=== PATIENT | female | born 1965 | race Caucasian/White ===

== ENCOUNTER → 2017-12-09 | Outpatient (CLI) | payer OTHER | END | disposition home or self-care (01) | LOC: CFH 09:18 | PROVIDERS: ATTEND Family Medicine | DX: R05 Cough (principal) | CPT/HCPCS: 71046 ==

== ENCOUNTER → 2019-02-23 | Outpatient (CLI) | payer OTHER | END | disposition home or self-care (01) | LOC: CFH 12:38 | PROVIDERS: ATTEND Obstetrics & Gynecology | DX: N64.4 Mastodynia (principal); R92.2 Inconclusive mammogram | CPT/HCPCS: 77066; G0279 ==

== ENCOUNTER 2019-12-15 15:30 | Emergency (ER) | payer OTHER ==
[~2019-12-15] VITALS: Ht 149.9 cm; Wt 78.7 kg
[2019-12-15 15:37] VITALS: BP 131/77
[2019-12-15] MEDS ORDERED: SODIUM CHLORIDE 0.9% 1,000ML IVBOLUS ONE (16:00)
[2019-12-15] MEDS ORDERED: SODIUM CHLORIDE FLUSH 10ML SYR IVF ONE (16:00)
[2019-12-15 16:15] LABS: BASOPHILS % (AUTO) 1 % (0-1); EOSINOPHILS % (AUTO) 0 % (1-7); LYMPHOCYTES % (AUTO) 25 % (22-44); MEAN CORPUSCULAR HEMOGLOBIN 31.9 pg (27.0-34.8); MEAN CORPUSCULAR HGB CONC 33.7 g/dL (32.4-35.8); MEAN PLATELET VOLUME 8.1 fL (7.4-10.4); MONOCYTES % (AUTO) 11 % (2-9); NEUTROPHILS % (AUTO) 63 % (42-75); PLATELET COUNT 284 x10^3/uL (130-400); RED BLOOD COUNT 4.42 x10^6/uL (3.82-5.3); RED CELL DISTRIBUTION WIDTH 13.4 % (9.6-15.2)
[2019-12-15 16:16] LABS: MD NO
[2019-12-15 16:27] LABS: ALANINE AMINOTRANSFERASE 60 U/L (12-78); ALBUMIN 4.1 g/dL (3.4-5.0); ANION GAP 7 mmol/L (5-15); CALCIUM 8.6 mg/dL (8.5-10.1); CHLORIDE 106 mmol/L (98-107)
[2019-12-15 16:32] LABS: ALKALINE PHOSPHATASE 80 U/L (45-117); BILIRUBIN,TOTAL 0.2 mg/dL (0.2-1.0); TOTAL PROTEIN 7.9 g/dL (6.4-8.2); TROPONIN I < 0.015 ng/mL (0.000-0.045)
--- NOTE | 2019-12-15 19:05 | NUR ---
Jig And Fixture Repairer took over for patient and discharged. Patient was already dressed and ready to leave. Refused vitals at this time
== END 2019-12-15 19:08 | disposition home or self-care (01) ==
LOC: ED 18:07
DX: R05 Cough (principal); R06.00 Dyspnea, unspecified; R19.7 Diarrhea, unspecified; M79.10 Myalgia, unspecified site; R94.31 Abnormal electrocardiogram [ECG] [EKG]; R07.9 Chest pain, unspecified; I10 Essential (primary) hypertension
CPT/HCPCS: 36415; 71045; 80053; 84484; 85025; 93005; 99285

== ENCOUNTER 2019-12-20 15:40 | Emergency (ER) | payer OTHER ==
[~2019-12-20] VITALS: Ht 149.9 cm; Wt 77.5 kg
--- NOTE | 2019-12-20 15:48 | NUR ---
EKG DONE IN TRIAGE
[2019-12-20] MEDS ORDERED: DEXAMETHASONE 4 MG TABLET PO ONE (16:00)
[2019-12-20] MEDS ORDERED: DEXAMETHASONE 4 MG TABLET ONE (18:48)
--- NOTE | 2019-12-20 18:57 | NUR ---
PT REPORT TO [facility] URIAS. PT CARE TRANSFERRED. DECADRON GIVEN TO BRIDGETT FOR ADMINISTRATION.
[2019-12-20 19:30] VITALS: BP 146/78
--- NOTE | 2019-12-20 22:13 | NUR ---
POLE SHAVER HELPER: IT WAS BROUGHT TO THE POLE SHAVER HELPER'S ATTENTION AT THIS TIME THAT THIS PATIENT WAS NOT A HOLD AND UP FOR DC. ASSUMED CARE OF PT AT THIS TIME. DC PAPERWORK GONE OVER. PT AO X 4. SKIN SLIGHTLY DIAPHORETIC BUT COOL AND PINK. RESP EVEN AND UNLABORED. PT VERBLAIZES UNDERSTANDING OF DC INSTURCTIONS.
[2019-12-20 22:20] VITALS: BP 147/74
[2019-12-20] MEDS ORDERED: LOSA100T14 PO (22:21)
== END 2019-12-20 22:22 | disposition home or self-care (01) ==
LOC: ED 20:30
DX: R06.00 Dyspnea, unspecified (principal); R50.9 Fever, unspecified; R05 Cough; R00.0 Tachycardia, unspecified; R06.02 Shortness of breath
CPT/HCPCS: 71045; 93005; 99283

== ENCOUNTER → 2020-08-04 | Outpatient (CLI) | payer OTHER ==
[~2020-08-04] MED LIST: ASCO500T9 PO; CHOL10003 PO; DEXA4TAB66 PO; ENOX80SY4 SQ; LOSA100T14 PO; ZINC220C7 PO
== END | disposition home or self-care (01) ==
LOC: CFH 08:55
PROVIDERS: ATTEND Obstetrics & Gynecology
DX: N64.4 Mastodynia (principal)
CPT/HCPCS: 77062; 77066; G0279